=== PATIENT | male | born 1970 | race Caucasian/White ===

== ENCOUNTER → 2024-03-12 | Day surgery (SDC) | payer BC ==
[~2024-03-12] MED LIST: LIDOCAINE 1% MPF 5 ML VIAL ONE; propofoL 200 MG/20 ML VIAL IV ONE
[2024-03-12 10:31] LABS: Absolute Basophils 0.1 K/uL (0-0.5); Absolute Eosinophils 0.2 K/uL (0-0.5); Absolute Lymphocytes (CBC) 2.3 K/uL (0.7-4.9); Absolute Monocytes 0.6 K/uL (0.1-1.3); Absolute Neutrophil 5.8 K/uL (1.8-8.0); Basophils % 0.7 % (0-1.3); Eosinophils % 2.5 % (0-4.4); Hematocrit 46.8 % (39.6-49.0); Hemoglobin 16.2 g/dL (13.6-17.9); Lymphocytes % 25.7 % (15.3-44.8); MCH 30.5 pg (27.0-35.0); MCHC 34.6 g/dL (32.0-36.0); MPV 6.8 fL (7.6-11.3); Monocytes % 6.4 % (3.3-12.3); Neutrophils % 64.7 % (41.7-73.7); Nucleated Red Blood Cells % 0.1 % (0-0); Platelets 419 thou/uL (152-406); RBC Red Blood Cell Count 5.32 M/uL (4.33-5.43); Red Cell Distribution Width 14.1 % (12.1-15.2)
[2024-03-12] MEDS: Ringers Lactate 1,000 ML IV ONE (10:45)
--- NOTE | 2024-03-12 12:07 | EKG ---
Test Date: 2024-03-12 Test Time: 11:11:34 Registered Nurse Teacher: NIRU MEASUREMENT RESULTS: Intervals: Rate: 68 [place]: 148 QRSD: 90 QT: 376 QTc: 399 [place]: P: 32 [place]: 148 QRS: 40 T: 43 INTERPRETIVE STATEMENTS: Normal sinus rhythm Normal ECG No previous ECG available for comparison Electronically Signed On 03-12-24 12:07:06 [employer] by Matthew Max
[2024-03-12] MEDS: HYDROCODONE/APAP 5/325 MG TAB ONE (12:36)
[2024-03-12 14:41] VITALS: O2SAT 100
[2024-03-12 14:42] VITALS: BP 140/88; TEMP 98.4
== END ==
LOC: OR 10:17
PROVIDERS: ATTEND Surgery
PROC: 0DBH8ZX Excision of Cecum, Via Natural or Artificial Opening Endoscopic, Diagnostic (ICD-10-PCS; principal; 2024-03-12 12:00)
DX: Z12.11 Encounter for screening for malignant neoplasm of colon (principal); D12.0 Benign neoplasm of cecum; K57.30 Diverticulosis of large intestine without perforation or abscess without bleeding; K64.8 Other hemorrhoids
CPT/HCPCS: 93005; 85025; 80048; 36415; 88305; 45385; J2704; J2003; J7120

== ENCOUNTER 2024-03-14 10:23 | Emergency (ER) | payer BC ==
--- OUTSIDE RECORDS SUMMARY | 2024-03-14 10:28 | XMS REPORT | Continuity of Care Document ---
Author Name Unknown Address [address] [facility] [address]. [address] [facility] Address [address] [facility] [address] [place] [address] Care Team Providers Care Doll Wig Hackler Name Role Phone DORIS CEDENO Attending Clinician Unavailable [id number] Attending Clinician Unavailable RTANG NUNN Attending Clinician Unavailab Horace Nicholas Attending Clinician Unavailable TAISHA RODRIGUEZ Attending Clinician Unavaila MARYANN Melendez Attending Clinician Unavailable Laura Leavitt MD Attending Clinician [phone] LAURA LEAVITT Attending Clinician Unavailabl e LAB68 Attending Clinician Unavailable Oz Heath Attending Clinician Unavaila Payal Nowak Attending Clinician Unavaila maureen Physician, No Primary or Family Admitting Clinic steffanie Unavailable UNDEFINED Admitting Clinician Unavailable Jah Cervantes Admitting Clinician Unavailable Payers Payer Name Policy Type Policy Number Effective Date Expirati on Date Source BCBS 2 [id number] 2024 00:00:00 [facility] INSURANCE CLAIMS 2 [id number] 2021 00:00:00 Problems Condition Name Condition Details Condition Category Status Onset Date Resolution Date Last Treatment Date Treating Clinician Comments Source Prediabete s Prediabete s Disease Active 08-30 00:00: 00 Johanne Petersen - Externa l Mixed hyperlipid emia Mixed hyperlipid emia Disease Active 08-27 00:00: 00 Johanne Petersen - Externa l Primary hypertensi on Primary hypertensi on Disease Active 08-26 00:00: 00 Johanne Petersen - Externa l Obesity Obesity Disease Active 08-26 00:00: 00 Johanne Winterold - Externa l Smoker Smoker Disease Active 08-26 00:00: 00 Johanne Petersen - Externa l Umbilical hernia Umbilical hernia Disease Active 08-26 00:00: 00 Johanne Winterold - Externa l Calculus of gallbladde r without cholecysti tis without obstructio n Calculus of gallbladde r without cholecysti tis without obstructio n Disease Active 08-26 00:00: 00 Johanne Petersen - Externa l Allergies, Adverse Reactions, Alerts Allergy Name Allergy Type Status Severity Reaction(s) Onset Date Inactive Date Treating Clinician Comments Source No Known Allergie s DA Active U 08-15 00:00: 00 [facility] No Known Allergie s DA Active U 2017-02-10 00:00: 00 [facility] No Known Allergie s DA Active U 2-14 00:00: 00 [facility] No Known Allergie s DA Active U 0 4-27 00:00: 00 [facility] Social History Social Habit Start Date Stop Date Quantity Comments Source History of tobacco use 2023-12-31 00:00:00 Chews Tobacco Johanne Petersen - External Sexual orientation K harvye Petersen - External Tobacco use and exposure 2024-03-05 00:00:00 2024-03-05 00:00:00 User of smokeless tobacco Johanne Petersen - External History of Social function 2024-03-05 00:00:00 2024-03-05 00:00:00 Johanne Gutierrez External Sex 2019-03-07 19:08:03 2019-03-07 19:08:03 Male (finding) Jhoanne Epstein Sex assigned at 1970 00:00:00 1970 00:00:00 Johanne Epstein Smoking Status Start Date Stop Date Source Ex-smoker 2024-03-05 00:00:00 2024-03-05 00:00:00 Almita gabriel Nicola Epstein Medications Ordered Medication Name Filled Medication Name Start Date Stop Date Current Medication? Ordering Clinician Indication Dosage Frequency Signature (SIG) Comments Components Source Atenolol 25 MG oral Tablet 03-05 00:00: 00 Yes [id number] 25mg QD Take 1 tablet (25 mg total) by mouth daily. Johanne jensen Losartan Potassium (COZAAR) 100 MG oral Tablet 03-05 00:00: 00 09-02 04:59 :00 Yes [id number] 100mg QD Take 1 tablet (100 mg total) by mouth daily. Johanne jensen BUPROPION HCL SR 150 MG OR TB12 02-17 00:00: 00 Yes 150mg Q.5D Take 1 tablet (150 mg total) by mouth 2 times daily. Johanne jensen FENOFIBRATE MICRONIZED 54 MG oral Tablet 2023-02 00:00: 00 Yes 54mg QD Take 1 tablet (54 mg total) by mouth daily. Johanne jensen Atorvastati n Calcium 40 MG oral Tablet 08-27 00:00: 00 03-05 00:00 :00 No [id number] 40mg QD Take 1 tablet (40 mg total) by mouth daily Johanne jensen [facility] d Ethyl Esters 1 g oral Capsule 08-27 00:00: 00 03-05 00:00 :00 No [id number] 2g Q.5D Take 2 capsules (2 g total) by mouth 2 times daily Johanne jensen Losartan Potassium 100 MG oral Tablet 07-25 00:00: 00 03-05 00:00 :00 No 100mg QD Take 1 tablet (100 mg total) by mouth daily. Johanne jensen Atenolol 25 MG oral Tablet 07-25 00:00: 00 03-05 00:00 :00 No 25mg QD Take 1 tablet (25 mg total) by mouth daily. Johanne jensen Immunizations Ordered Immunization Name Filled Immunization Name Date Status Comments Source Tdap- (Boostrix, Adacel) Unknown Completed Johanne Petersen - External Vital Signs Vital Name Observation Time Observation Value Comments S ource Systolic blood pressure 2024-03-05 15:26:00 134 mm[Hg] Johanne bronson - External Diastolic blood pressure 2024-03-05 15:26:00 80 mm[Hg] Johanne bronson - External Heart rate 2024-03-05 15:26:00 70 /min Terry Petersen - External Body temperature 2024-03-05 15:26:00 36.61 Fidelia Johanne Petersen - External Respiratory rate 2024-03-05 15:26:00 18 /min Johanne Petersen - External Body height 2024-03-05 15:26:00 175.3 cm Selena cobos ybalisha - External Body weight 2024-03-05 15:26:00 93.044 kg Selena cobos Nicola - External BMI 2024-03-05 15:26:00 30.29 kg/m2 Selena papito Winteralisha - External Oxygen saturation in Arterial blood by Pulse oximetry 2024-03-05 15:26:00 98 /min Johanne bronson - External Encounters Start Date/Time End Date/Time Encounter Type Admission Type Attending [facility] Care Facility Care Department Encounter ID Source 2021-09-09 15:56:00 Emergency [facility] [id number] [facility] 2021-09-09 15:56:00 Emergency [facility] [id number] 95 [facility] 2024-06-03 09:30:00 2024-06-03 09:30:00 Outpatient DORIS CEDENO [id number] Johanne Petersen 2024-03-06 00:00:00 2024-03-06 00:00:00 Outpatient DORIS CEDENO [facility]AN[facility] [id number] [facility] 2024-03-05 10:15:00 2024-03-05 10:15:00 Outpatient [id number] JOHANNE JOHANNE [id number] Johanne Abreualisha 2024-03-05 09:30:00 2024-03-05 09:30:00 Outpatient DORIS CEDENO JOHANNE [id number] Johanne Abreualisha 2024-03-01 13:30:00 2024-03-01 13:30:00 Outpatient TRANG NUNN JOHANNE LANG [id number] [facility] 2024-03-01 13:30:00 2024-03-01 13:30:00 Outpatient TRANG NUNN JOHANNE LANG [id number] Johanne [facility] 2022-02-04 15:36:00 2022-02-04 20:42:00 Emergency EM Horace Gilliam [facility] [id number] [facility] 2021-10-13 00:00:00 2021-10-13 00:00:00 Outpatient TAISHA RODRIGUEZ [id number] Johanne [facility] 2021-09-28 09:30:00 2021-09-28 09:30:00 Outpatient MARYANN RITCHIE [id number] Joh[facility] 2021-08-30 11:30:00 2021-08-30 12:00:00 Office Visit [facility] [id number] Johanne [facility] 2021-08-27 00:00:00 2021-08-27 00:00:00 Outpatient LAURA LEAVITT [id number] Joh[facility] 2021-08-26 10:45:00 2021-08-26 10:45:00 Outpatient HERMINIA JOHANNE LANG [id number] Johanne [facility] 2021-08-26 10:00:00 2021-08-26 10:30:00 Office Visit [facility] [id number] Johanne Petersen 2021-08-26 00:00:00 2021-08-26 00:00:00 Outpatient LAURA LEAVITT [id number] Johnane Petersen 2021-08-20 16:55:00 2021-08-20 23:25:00 Emergency EM Oz Heath [facility] JONEL [id number] [facility] 2021-08-20 16:55:00 2021-08-20 23:25:00 Emergency [facility] [id number] [facility] 2021-08-15 22:10:00 2021-08-16 01:42:00 Emergency EM Pyaal Brown [facility] [id number] [facility] 2021-08-15 22:10:00 2021-08-16 01:42:00 Emergency EM Payal Brown [facility] JONEL [id number] [facility] Results Test Description Test Time Test Comments Results Result Co mments Source LACTIC [id number] 19:23:00* Test Item Value Reference Range Interpretation Comme [facility] LACTIC ACID (test code = LACT) 1.2 mmol/L 0.7-2.0 N [id number] 19:23:00* Test Item Value Reference Range Interpretation Comme [facility] LIPASE (test code = LIP) 23 U/L 23-300 N BASIC METABOLIC [id number] 19:23:00* Test Item Value Reference Range Interpretation Comme nts SODIUM (test code = NA) 137 mmol/L 137-145 N POTASSIUM (test code = K) 3.7 mmol/L 3.4-5.0 N CHLORIDE (test code = CL) 101 mmol/L 98-107 N CARBON DIOXIDE (test code = CO2) 27 mmol/L 22-30 N ANION GAP (test code = GAP) 13 GLUCOSE (test code = GLU) 119 mg/dL 74-106 H BLOOD UREA NITROGEN (test code = BUN) 16 mg/dL 9-20 N GLOMERULAR FILTRATION RATE (test code = GFR) 108 mL/min The Glomerular Filtration Rate is a calculated parameterbased on serum Creatinine, patient age and sex. GFR valuesless than 60 mL/min/1.73 square meters are indicative ofChronic Kidney Disease. Values less than 15 mL/min/1.73square meters indicate Kidney failure. The calculation forGFR is based on the CKD-EPI (2020) calculation. This formulais race indifferent and is the recommended formula for GFRby the National Kidney Foundation for Adults.The GFR will not calculate if the sex is unknown or if thepatient's age is <18 years. CREATININE (test code = CREAT) 0.8 mg/dL 0.7-1.3 N CALCIUM (test code = CA) 8.9 mg/dL 8.4-10.2 N INDEX HEMOLYSIS (test code = HEMINDEX) < 15 Index/DL 0-100 N LIVER FUNCTION [id number] 19:23:00* Test Item Value Reference Range Interpretation Comme nts TOTAL PROTEIN (test code = PROT) 7.3 g/dL 6.3-8.2 N "A positive bias may occur for patients taking Eltrombopag(a bone marrow stimulant used to treat thrombocytopenia andaplastic anemia)." ALBUMIN (test code = ALB) 4.6 g/dL 3.5-5.0 N BILIRUBIN TOTAL (test code = BILT) 0.6 mg/dL 0.2-1.3 N "A positive b ias may occur for patients taking Eltrombopag(a bone marrow stimulant used to treat thrombocytopenia andaplastic anemia)." BILIRUBIN CONJUGATED (test code = BILCON) 0 mg/dL 0-0.3 N "A positive bias may occur for patients taking Eltrombopag(a bone marrow stimulant used to treat thrombocytopenia andaplastic anemia)." CONJUGATED BILIRUBIN IS THE REPLACEMENT ASSAY FOR DIRECTBILIRUBIN. BILIRUBIN UNCONJUGATED (test code = BILUNC) 0.3 mg/dL 0-1.1 N SGOT/AST (test code = AST) 34 U/L 15-46 N SGPT/ALT (test code = ALT) 34 U/L 0-49 N ALKALINE PHOSPHATASE (test code = ALKP) 80 U/L 38-126 N CBC W/AUTO [id number] 19:12:00* Test Item Value Reference Range Interpretation Comme nts WHITE BLOOD CELL (test code = WBC) 9.1 x10 3/uL 5.0-12.0 N RED BLOOD CELL (test code = RBC) 4.63 x10 6/uL 4.70-6.10 L HEMOGLOBIN (test code = HGB) 14.0 g/dL 14.0-18.0 N HEMATOCRIT (test code = HCT) 40.2 % 37.0-49.0 N MEAN CELL VOLUME (test code = MCV) 87 fL 80-94 N MEAN CELL HGB (test code = MCH) 30.2 pg 27-31 N MEAN CELL HGB CONCENTRATION (test code = MCHC) 34.8 g/dL 33-37 N RED CELL DISTRIBUTION WIDTH (test code = RDW) 12.3 % 11.5-15.5 N PLATELET COUNT (test code = PLT) 268 x10 3/uL 130-400 N MEAN PLATELET VOLUME (test c ode = MPV) 8.9 fL 9.4-16.4 L NEUTROPHIL % (test code = NT%) 51.4 % 43-65 N IMMATURE GRANULOCYTE % (test code = IG%) 0.3 % 0.0-2.0 N LYMPHOCYTE % (test code = LY%) 39.9 % 20.5-45.5 N MONOCYTE % (test code = MO%) 4.4 % 5.5-11.7 L EOSINOPHIL % (test code = EO%) 3.4 % 0.9-2.9 H BASOPHIL % (test code = BA%) 0.6 % 0.2-1.0 N NUCLEATED RBC % (test code = NRBC%) 0.0 % 0-1.0 N NEUTROPHIL # (test code = NT#) 4.67 x10 3/uL 2.2-4.8 N IMMATURE GRANULOCYTE # (test code = IG#) 0.03 x10 3/uL 0-0.03 N LYMPHOCYTE # (test code = LY#) 3.63 x10 3/uL 1.3-2.9 H MONOCYTE # (test code = MO#) 0.40 x10 3/uL 0.3-0.8 N EOSINOPHIL # (test code = EO#) 0.31 x10 3/uL 0.0-0.2 H BASOPHIL # (test code = BA#) 0.05 x10 3/uL 0.0-0.1 N - CT ABD PELVIS W/O [id number] 17:34:00 [facility] 1970 Sex: M FAX: Demetria Degroot [phone] [place]: [address]: REG Name: FARA HARRIS : 1970 Age/S: 51/M [address] Unit: [id number] Loc: [place] [address] Phys: Demetria Christine APRNNP Acct: [id number] Date: Status: REG ER PHONE #: [phone] Exam Date: 02/04/2022 1700 FAX #: [phone] Reason: mid abdominal pain EXAMS: CPT CODE: [id number] CT ABD PELVIS W/O CONT 30491 EXAMINATION: - CT ABDPELVIS W/O CONT COMPARISON: CT scan performed August 20, [address] scan of chest performed October 23, 2010 HISTORY: Mid abdominal pain LOCATION CODE: C3 TECHNIQUE: CT of the Abdomen and Pelvis without intravenous contrast .Oral contrast was not administered Axial noncontrast enhanced images of the abdomen and pelvis were obtained and reviewed in soft tissue, bone and lung windows. Coronal andsagittal reconstructed images were also provided for review. All CT scans are performed using dose optimization techniques as appropriate to a performed exam including one or more of the following: ?A utomated exposure control ?Adjustment of the mA and/or kV according to patient size ?Use of iterative reconstruction technique FINDINGS ABDOMEN: Mild diffuse fatty change is again noted in the liver,with areas of focal fatty sparing seen around the gallbladder fossa. Small dependent gallstone is unchanged. There is no biliary dilatation. The spleen, pancreas, adrenal glands and kidneys are normal. There is no free air, free fluid or lymphadenopathy. The bowel, including the appendix, is normal. Small umbilical hernia containing fat and fluid is again noted. Amount of fluid contained within the tiny hernia has decreased compared to the prior. Occasional 3 to 5 mm nodules in the visualized portions of the right lower lung are present. They are unchanged from 2011. They can be considered benign by CT criteria without need for additional imaging follow-up. Mild degenerative disc changes are present in the spine. FINDINGS PELVIS: The urinary bladder, prostate and seminal vesicles are normal. There is no free air, free fluid or lymphadenopathy. Mild atheromatous plaquing is present in the vessels. No suspicious bowel lesions are identified. Mild osteoarthritic changes are seen in the sacroiliac joints. PAGE 1 Signed Report (CONTINUED) FAX: Demetria Degroot [phone] [place]: St: REG -- Name: FARA HARRIS [facility] [place] : 1970 Age/S: 51/M [address] Unit: [id number] Loc: [place] [address] Phys: Demetria Christine Acct: [id number] Dis Date: Status: REG ER PHONE #: [phone] Exam Date: 02/04/2022 1700 FAX #: [phone] Reason: mid abdominal pain EXAMS: CPT CODE: [id number] CT ABD PELVIS W/O CONT 91928 (Continued) IMPRESSION: No acute abnormality abdomen or pelvis Stable findings as above are at 1734 Reported and signed by: Leidy Fernandez MD CC: Demetria Christine Technologist: Nereida Cunningham; JEFFREY BROOKS Trnscrd Dt/Tm: 02/04/2022 (1734) [email or web address] Orig Print D/T: S: 02/04/2022 (1737 PAGE 2 SignedReport- CT ABD PELVIS W/O [id number] 21:37:00 [facility] : 1970 Sex: M Patient Name: FARA HARRIS Unit No: [id number] EXAMS: CPT CODE: [id number] CT ABD PELVIS W/O CONT 27370 EXAM: - CT ABD PELVIS W/O CONT HISTORY: 50 years -old Male with can't reduce umbilical hernia TECHNIQUE: Contrast - No IV contrast was given. No oral contrast was given Noncontrast phase - abdomen and pelvis including all of kidneys Reconstructions - coronal and sagittal planes Automated exposure reduc tion (Auto mA/Smart mA) was utilized in compliance with ACR [employer] COMPARISON: 07/17/2021 FINDINGS: Statements: Lack of intravenous contrast compromises evaluation of abdominopelvic organs and vasculature. Lack of oral contrast compromises evaluation of bowel. Thoracic: Included images of the lower chest demonstrate no abnormalities. Hepatobiliary: The liver is normal without focal lesion. Gallstone is present within the gallbladder. No biliary dilation. Pancreas: Normal. Spleen: Normal. Adrenals: Normal. Genitourinary: The kidneys are normal. There is no evidence of hydronephrosis of either kidney. There is no evidence of renal calculus. Evaluation of the bladder is limited, but no obv ious bladder abnormality is present. Gastrointestinal: No bowel obstruction or perienteric inflammation. The appendix is normal. Bones/Soft Tissues: No acute osseous findings. Fluid-filled umbilical hernia is present similar to prior study. No herniated bowel identified. Peritoneum/Other: No extraluminal air. No extraluminal fluid. IMPRESSION: 1. Fluid-filled umbilical hernia. No herniated bowel.2. Cholelithiasis. 3. No other changes compared to prior exam. [facility] Jaimie NAME: FARA HARRIS [address] [place] [address] PHYS: Rosa Isela Severino [place], [place] [address] : 1970 AGE: 50 SEX: M LOC: RIMMA PHONE #: [phone] EXAM DATE: 08/20/2021 STATUS: REG ER FAX #: [phone] RAD #: D/C DT PAGE 1 Signed Report (CONTINUED) Patient Name: FARA HARRIS Unit No: [id number] EXAMS: CPT CODE: [id number] CT ABD PELVIS W/O CONT 09939 <Continued> ElectronicallySigned by Sabrina Castillo on 08/20/2021 at 2136 Reported and signed by: Maryann Castillo M.D. CC: Rosa Isela Wilkinson NP Dictated Date/Time: 08/20/2021 (2136) Technologist: Rojas Rodgers CTDI:DLP: Trnscrpt: 08/20/2021 (2136) [email or web address] NOHEMYVioleta Etienne NAME: FARA HARRIS [address] [place] [address] BlvdPHYS: Rosa Isela Severino NP [place] [address] : 1970 AGE: 50 SEX: M LOC: [facility] PHONE #: [phone] EXAM DATE: 08/20/2021 STATUS: REG ER FAX #: [phone] RAD #:D/C DT PAGE 2 Signed Report Patient Name: FARA HARRIS Unit No: [id number] EXAMS: CPT CODE: [id number] CT ABD PELVIS W/O CONT 03213 <Continued> Orig Print D/T: S: 08/20/2021 (2139) GARRETT DongeNAME: FARA HARRIS [address] [place] [address] Blvd PHYS: Rosa Isela Severino [place] [address] : 1970 AGE: 50 SEX: M LOC: BVictorinoERS PHONE #: [phone] EXAM DATE: 08/20/2021 STATUS: REG ER FAX #: [phone] RAD #: D/C DT PAGE 3 Signed ReportUA RFLX MICR CULT IF [id number] 19:38:00* Test Item Value Reference Range Interpretation Comme nts UA COLOR (test code = COLU) LIGHT-YELLOW DESCRIPT YELLOW UA APPEARANCE (test code = APPU) CLEAR DESCRIPT CLEAR UA GLUCOSE DIPSTICK (test code = DGLUU) NORMAL (0) mg/dL See_Comment [Automated message] The system which generated this result transmitted reference range: 0 (NORMAL). The reference range was not used to interpret this result as normal/abnormal. UA BILIRUBIN DIPSTICK (test code = BILU) NEGATIVE (0.0) mg/dL See_Comment [Automated message] The system which generated this result transmitted reference range: (NEG) 0. The reference range was not used to interpret this result as normal/abnormal. UA KETONE DIPSTICK (test code = KETU) NEGATIVE (0) mg/dL See_Comment [Automated message] The system which generated this result transmitted reference range: (NEG) 0. The reference range was not used to interpret this result as normal/abnormal. UA SPECIFIC GRAVITY (test code = SGU) 1.033 SG 1.001-1.035 UA BLOOD DIPSTICK (test code = OTIS) NEGATIVE (0.00) mg/dL See_Comment [Automated message] The system which generated this result transmitted reference range: 0 (NEG). The reference range was not used to interpret this result as normal/abnormal. UA PH DIPSTICK (test code = HIMA) 5.5 pH UNITS 4.6-8.0 UA PROTEIN DIPSTICK (test code = PROU) 30 (1+) mg/dL See_Comment A [Automated message] The system which generated this result transmitted reference range: <30 (1+). The reference range was not used to interpret this result as normal/abnormal. UA UROBILINIOGEN DIPSTICK (test code = URO) NORMAL (0) mg/Dl See_Comment [Automated message] The system which generated this result transmitted reference range: <2.0 (1+). The reference range was not used to interpret this result as normal/abnormal. UA NITRITE DIPSTICK (test code = CRISTINA) NEGATIVE (0) SCREEN NEG UA LEUKOCYTE ESTERASE DIPSTICK (test code = LEUU) NEGATIVE (0) Leuk/mcL See_Comment [Automated message] The system which generated this result transmitted reference range: (NEG) 0. The reference range was not used to interpret this result as normal/abnormal. UA COMMENT (test code = COMU) CLEAN CATCH SPEC NoteSPEC SpecComment UA WBC (test code = WBCU) 0-3 #WBC/HPF 0-3 UA RBC (test code = RBCU) 3-5 #RBC/HPF 0-3 UA BACTERIA (test code = BACU) TRACE >0 /HPF NONE-FEW UA MUCUS (test code = MUCU) RARE /LPF NONE UA CULTURE NEEDED? (test code = UACULT) Crit NOTmet CULT-N/A Criteria [facility] Indication for culture: Flank PainBASIC METABOLIC [id number] 19:35:00* Test Item Value Reference Range Interpretation Comme nts SODIUM (test code = NA) 138.0 mmol/L 133-144 N POTASSIUM (test code = K) 3.7 mmol/L 3.5-5.1 N CHLORIDE (test code = CL) 105 mmol/L 95-105 N CARBON DIOXIDE (test code = CO2) 25 mmol/L 21-32 N ANION GAP (test code = GAP) 8.0 GAP calc 4.0-15.0 N GLUCOSE (test code = GLU) 130 MG/DL 70-110 H BLOOD UREA NITROGEN (test code = BUN) 23 MG/DL 7-18 H CREATININE (test code = CREAT) 0.89 MG/DL 0.55-1.30 N Results may be depressed if patient is takingN-Acetylcystei ne (NAC) and Metamizole (Dipyrone). CALCIUM (test code = CA) 8.6 MG/DL 8.5-10.1 N INDEX HEMOLYSIS (test code = HEMINDEX) 3 SMALL 25-50 MG Index/DL See_Comment [Automated message] The system which generated this result transmitted reference range: 1 NORMAL. The reference range was not used to interpret this result as normal/abnormal. INDEX ICTERIC (test code = ICTINDEX) 1 NORMAL <2 MG Index/DL See_Comment [Automated message] The system which generated this result transmitted reference range: 1 NORMAL. The reference range was not used to interpret this result as normal/abnormal. INDEX LIPEMIA (test code = LIPINDEX) 2 TRACE 50-100 MG Index/DL See_Comment [Automated message] The system which generated this result transmitted reference range: 1 NORMAL. The reference range was not used to interpret this result as normal/abnormal. HEPATIC FUNCTION [id number] 19:35:00* Test Item Value Reference Range Interpretation Comme nts TOTAL PROTEIN (test code = PROT) 7.7 G/DL 6.4-8.2 N ALBUMIN (test code = ALB) 4.1 G/DL 3.4-5.0 N BILIRUBIN TOTAL (test code = BILT) 0.46 MG/DL 0.00-1.00 N BILIRUBIN DIRECT (test code = BILD) 0.16 MG/DL 0.00-0.30 N BILIRUBIN INDIRECT (test cod e = BILIND) 0.30 MG/DL 0.2-1.3 N SGOT/AST (test code = AST) 21 Unit/L 15-37 N SGPT/ALT (test code = ALT) 42 Unit/L 12-78 N ALKALINE PHOSPHATASE TOTAL ( test code = ALKP) 90 Unit/L 45-117 N [id number] 19:35:00* Test Item Value Reference Range Interpretation Comme nts LIPASE (test code = LIP) 100 Unit/L 114-286 L CBC W/O [id number] 19:17:00* Test Item Value Reference Range Interpretation Comme nts WHITE BLOOD CELL (test code = WBC) 8.0 K/mm3 4.1-12.1 N RED BLOOD CELL (test code = RBC) 4.82 M/mm3 3.8-5.5 N HEMOGLOBIN (test code = HGB) 14.8 G/DL 10.6-15.8 N HEMATOCRIT (test code = HCT) 42.6 % 31.8-47.4 N MEAN CELL VOLUME (test code = MCV) 88.4 fL 80.1-101.1 N MEAN CELL HGB (test code = MCH) 30.7 pg 25.3-35.3 N MEAN CELL HGB CONCETRATION ( test code = MCHC) 34.7 G/DL 32.7-35.1 N RED CELL DISTRIBUTION WIDTH (test code = RDW) 12.9 % 12.2-16.4 N PLATELET COUNT (test code = PLT) 277 K/mm3 155-337 N MEAN PLATELET VOLUME (test c ode = MPV) 9.3 fL 7.6-10.4 N - CT ABD PELVIS [id number] 00:51:00 [facility] : 1970 Sex: M FAX:Jah Spaulding MD [phone] [place]: St: REG Name: FARA HARRIS [facility] : 1970 Age/S: 50/M [id number] Unit: [id number] Loc: [place] [address] Phys: Ronan Vaughn Acct: [id number] Dis Date: Status: REG ER PHONE #: [phone] Exam Date: 08/16/20218 FAX #: [phone] Reason: ventral hernia, increased pain and distention EXAMS: CPT CODE: [id number] CT ABD PELVIS W/CONT 28504 EXAM: - CT ABD PELVIS W/CONT HISTORY: Abdominal pain. TECHNIQUE: Axial tomograms through the abdomen and pelvis were obtained after intravenous contrast. Coronal and sagittal reformatted images are provided. This exam was performed according to our departmental dose-optimization program, which i ncludes automated exposure control, adjustment of the mA and/or kV according to patient size and/oruse of iterative reconstruction technique. COMPARISON: June 03, 2015. FINDINGS: The visualized lung bases are clear. Tiny subcentimeter nodule in right middle lobe laterally. No effusion. There is fatty infiltration of the liver. The spleen, pancreas, adrenal glands and kidneys demonstrate no significant abnormalities. The appendix has a normal appearance. The bowel is unremarkable. There is no adenopathy or free fluid. There is bilateral symmetrical small inguinal hernias containing fat. There is a small 2.4 cm cyst at the umbilicus. This has increased in size compared to 1 cm on prior exam. A small umbilical hernia containing fluid is another possibility. There is no acute osseous abnormality. IMPRESSION: A small 2.5 cm umbilical cyst versus small umbilical hernia containing fluid. Small bilateral inguinal hernias containing fat. Hepatic steatosis. PAGE 1 Signed Report (CONTINUED) FAX: Jah Spaulding MD [phone] [place]: St: REG Name: FARA HARRIS [facility] : 1970 Age/S: 50/M [address] Unit: [id number] Loc: [place] [address] Phys: Ronan Vaughn Acct: [id number] Dis Date: Status: REG ER PHONE #: [phone] Exam Date: 08/16/2021 0028 FAX #: [phone] Reason: ventral hernia, increased pain and distention EXAMS: CPT CODE: [id number] CT ABD PELVIS W/CONT 21414 <Continued> at 0051 Reported and signed by: Kiel Pollack MD CC: Jah Cervantes MD Technologist: ALANA TO; MAGGIE LELIOTT Trnscrd Dt/Tm: 08/16/2021 (005) [email or web address] Orig Print D/T: S: 08/16/2021 (0054 PAGE 2 Signed ReportBASIC METABOLIC [id number] 23:46:00* Test Item Value Reference Range Interpretation Comme nts SODIUM (test code = NA) 136 mmol/L 137-145 L POTASSIUM (test code = K) 3.9 mmol/L 3.4-5.0 N CHLORIDE (test code = CL) 99 mmol/L 98-107 N CARBON DIOXIDE (test code = CO2) 28 mmol/L 22-30 N ANION GAP (test code = GAP) 13 GLUCOSE (test code = GLU) 112 mg/dL 74-106 H BLOOD UREA NITROGEN (test code = BUN) 14 mg/dL 9-20 N GLOMERULAR FILTRATION RATE (test code = GFR) 95 >60 The estimated glomerular filtration rate is computed usingpatient race, age (>18), sex, and serum creatinine. If anyof the needed data elements are missing the Laboratory cannot compute an estimation of the glomerular filtration rate. CREATININE (test code = CREAT) 0.9 mg/dL 0.7-1.3 N CALCIUM (test code = CA) 9.2 mg/dL 8.4-10.2 N INDEX HEMOLYSIS (test code = HEMINDEX) < 15 Index/DL 0-100 N LIVER FUNCTION [id number] 23:46:00* Test Item Value Reference Range Interpretation Comme nts TOTAL PROTEIN (test code = PROT) 7.6 g/dL 6.3-8.2 N "A positive bias may occur for patients taking Eltrombopag(a bone marrow stimulant used to treat thrombocytopenia andaplastic anemia)." ALBUMIN (test code = ALB) 4.6 g/dL 3.5-5.0 N BILIRUBIN TOTAL (test code = BILT) 0.7 mg/dL 0.2-1.3 N "A positive b ias may occur for patients taking Eltrombopag(a bone marrow stimulant used to treat thrombocytopenia andaplastic anemia)." BILIRUBIN CONJUGATED (test code = BILCON) 0 mg/dL 0-0.3 N "A positive bias may occur for patients taking Eltrombopag(a bone marrow stimulant used to treat thrombocytopenia andaplastic anemia)." CONJUGATED BILIRUBIN IS THE REPLACEMENT ASSAY FOR DIRECTBILIRUBIN. BILIRUBIN UNCONJUGATED (test code = BILUNC) 0.6 mg/dL 0-1.1 N SGOT/AST (test code = AST) 39 U/L 15-46 N SGPT/ALT (test code = ALT) 43 U/L 0-49 N ALKALINE PHOSPHATASE (test code = ALKP) 86 U/L 38-126 N [id number] 23:46:00* Test Item Value Reference Range Interpretation Comme nts LIPASE (test code = LIP) 122 U/L 23-300 N URINALYSIS [id number] 23:45:00* Test Item Value Reference Range Interpretation Comme nts UA COLOR (test code = COLU) YELLOW YELLOW UA APPEARANCE (test code = APPU) CLEAR CLEAR UA GLUCOSE DIPSTICK (test code = DGLUU) NEGATIVE MG/DL NEGATIVE UA BILIRUBIN DIPSTICK (test code = BILU) NEGATIVE NEGATIVE UA KETONE DIPSTICK (test code = KETU) NEGATIVE MG/DL NEGATIVE UA SPECIFIC GRAVITY (test code = SGU) 1.010 1.000-1.030 UA BLOOD DIPSTICK (test code = OTIS) TRACE NEGATIVE A UA PH DIPSTICK (test code = HIMA) 5.0 5.0-8.0 UA PROTEIN DIPSTICK (test code = PROU) NEGATIVE MG/DL NEGATIVE UA UROBILINOGEN DIPSTICK (test code = URO) 0.2 EU/dL See_Comment [Automated [employer]] The system which generated this result transmitted reference range: <=1.0. The reference range was not used to interpret this result as normal/abnormal. UA NITRITE DIPSTICK (test code = CRISTINA) NEGATIVE NEGATIVE UA LEUKOCYTE ESTERASE DIPSTICK (test code = LEUU) NEGATIVE NEGATIVE UA WBC (test code = WBCU) 0-3 /HPF See_Comment [Automated [employer]] The system which generated this result transmitted reference range: <4-5. The reference range was not used to interpret this result as normal/abnormal. UA RBC (test code = RBCU) 0-3 /HPF See_Comment [Automated [employer]] The system which generated this result transmitted reference range: <4-5. The reference range was not used to interpret this result as normal/abnormal. UA BACTERIA (test code = BACU) 1+ /HPF None-Rare A UA MUCUS (test code = MUCU) Rare /LPF See_Comment [Automated [employer]] The system which generated this result transmitted reference range: <Rare. The reference range was not used to interpret this result as normal/abnormal. UA SPERM (test code = SPERMU) Present /HPF None CBC W/AUTO [id number] 23:18:00* Test Item Value Reference Range Interpretation Comme nts WHITE BLOOD CELL (test code = WBC) 7.6 x10 3/uL 5.0-12.0 N RED BLOOD CELL (test code = RBC) 4.82 x10 6/uL 4.70-6.10 N HEMOGLOBIN (test code = HGB) 14.5 g/dL 14.0-18.0 N HEMATOCRIT (test code = HCT) 41.0 % 37.0-49.0 N MEAN CELL VOLUME (test code = MCV) 85 fL 80-94 N MEAN CELL HGB (test code = MCH) 30.1 pg 27-31 N MEAN CELL HGB CONCENTRATION (test code = MCHC) 35.4 g/dL 33-37 N RED CELL DISTRIBUTION WIDTH (test code = RDW) 12.8 % 11.5-15.5 N PLATELET COUNT (test code = PLT) 275 x10 3/uL 130-400 N MEAN PLATELET VOLUME (test c ode = MPV) 9.2 fL 9.4-16.4 L NEUTROPHIL % (test code = NT%) 74.0 % 43-65 H IMMATURE GRANULOCYTE % (test code = IG%) 0.5 % 0.0-2.0 N LYMPHOCYTE % (test code = LY%) 14.4 % 20.5-45.5 L MONOCYTE % (test code = MO%) 9.4 % 5.5-11.7 N EOSINOPHIL % (test code = EO%) 1.0 % 0.9-2.9 N BASOPHIL % (test code = BA%) 0.7 % 0.2-1.0 N NUCLEATED RBC % (test code = NRBC%) 0.0 % 0-1.0 N NEUTROPHIL # (test code = NT#) 5.63 x10 3/uL 2.2-4.8 H IMMATURE GRANULOCYTE # (test code = IG#) 0.04 x10 3/uL 0-0.03 H LYMPHOCYTE # (test code = LY#) 1.10 x10 3/uL 1.3-2.9 L MONOCYTE # (test code = MO#) 0.72 x10 3/uL 0.3-0.8 N EOSINOPHIL # (test code = EO#) 0.08 x10 3/uL 0.0-0.2 N BASOPHIL # (test code = BA#) 0.05 x10 3/uL 0.0-0.1 N - XR CHEST 1 [id number] 08:57:00 [facility] : 1970 Sex: M FAX: Camilo Sharma MD [phone] [place]: [address]: TRU Patient Name: FARA HARRIS Unit No: [id number] EXAMS: CPT CODE: [id number] XR CHEST 1 V [id number] EXAMINATION: - XR CHEST 1 V. LOCATION: B2. HISTORY: chest pain r/o pneumothorax. COMPARISON: Radiograph dated 03/22/2017. TECHNIQUE: Single AP view of the chest was obtained. FINDINGS: The heart is normal in size. Mild right medial basilar opacities are present. The left lung is clear. There is no pneumothorax. Remote right mid clavicular fracture is present. No acute osseous abnormality is identified. IMPRESSION: Mild medial right basilar opacities, which may represent atelectasis or infiltrates. at 0857 Reported and signed by: Aguilar Silver MD CC: Camilo Osei MD Dictated Date/Time: 12/16/2017 (0857)Technologist: Phong Burgess Transcribed Date/Time: 12/16/2017 (0857) By: [email or web address] Orig Print D/T: S: 12/16/2017 (0900) [facility] Jaimie NAME: FARA HARRIS [address] [place] [address] PHYS: Camilo Minor, [place] [address] : 1970 AGE: 47 SEX: M LOC: UNK PHONE #: [phone] EXAM DATE: 12/16/2017 STATUS: UNK FAX #: [phone] RAD NO: DC Dt: PAGE 1 Signed Report- XR CHEST 1 [id number] 21:20:00 [facility] : 1970 Sex: M FAX: He Persaud MD [phone] [place]: E St: [place] Patient Name: FARA HARRIS Unit No: [id number] EXAMS: CPT CODE: [id number] XRCHEST 1 V 41435 STUDY: Chest radiograph HISTORY: Chest pain. COMPARISON: None TECHNIQUE: Frontal view of the chest. SITE: R16 FINDINGS: The cardiac silhouette is unremarkable. There is no focal consolidation, pleural effusion, or pneumothorax. No acute osseous abnormalities are identified. IMPRESSION: No radiographic evidence for acute pulmonary abnormality. at 2119 Reported and signed by: Maryann Cote MD CC: He Sinclair MD Dictated Date/Time: 03/22/2017 (2119)Technologist: Alejandro Cantor Transcribed Date/Time: 03/22/2017 (2119) By: Inga [email or web address] Orig Print D/T: S: 03/22/2017 (2123) GARRETT Etienne NAME: FARA HARRIS [address] [place] [address] BlvdPHYS: He Stoddard MD [place], [place] [address] : 1970 AGE: 46 SEX: M LOC: UNK PHONE #: [phone] EXAM DATE: 03/22/2017 STATUS: UNK FAX #: [phone] RAD NO: DC Dt: PAGE 1 Signed Report
[2024-03-14 11:40] LABS: Absolute Eosinophils 0.1 K/uL (0-0.5); Absolute Lymphocytes (CBC) 1.5 K/uL (0.7-4.9); Absolute Monocytes 0.3 K/uL (0.1-1.3); Absolute Neutrophil 7.3 K/uL (1.8-8.0); Basophils % 0.4 % (0-1.3); Eosinophils % 1.4 % (0-4.4); Hematocrit 43.2 % (39.6-49.0); Hemoglobin 15.3 g/dL (13.6-17.9); Lymphocytes % 16.4 % (15.3-44.8); MCH 31.1 pg (27.0-35.0); MCHC 35.5 g/dL (32.0-36.0); MCV 87.7 fL (80-100); MPV 6.9 fL (7.6-11.3); Monocytes % 3.7 % (3.3-12.3); Neutrophils % 78.1 % (41.7-73.7); Platelets 332 thou/uL (152-406); RBC Red Blood Cell Count 4.92 M/uL (4.33-5.43); Red Cell Distribution Width 13.8 % (12.1-15.2)
--- NOTE | 2024-03-14 11:44 | RAD REPORT ---
EXAMINATION: CT ABDOMEN AND PELVIS WITH CONTRAST CLINICAL INDICATION: Abdominal pain TECHNIQUE: CT abdomen and pelvis was performed, after the administration of 100 cc Isovue-300.. Sagit noel and coronal reconstructions were obtained. One or more of the following dose reduction techniques were used: Automated exposure control, adjustment of the mA and kV according to patient si ze, and iterative reconstruction. Unless otherwise specified, incidental findings do not require dedicated imaging follow-up. [id number]. Oral contrast was not given which limits evaluation of bowel and appendix. COMPARISON: .None FINDINGS: Liver, spleen, pancreas, adrenals and kidneys appear unremarkable No evidence of diverticulitis. Normal appendix. Small umbilical hernia contains fluid. Normal appendix. Small inguinal hernias containing fat : IMPRESSION: Small umbilical hernia containing fluid Small inguinal hernias
[2024-03-14 14:18] LABS: Albumin 3.8 g/dL (3.4-5.0); Albumin/Globulin Ratio 1.1 (1.1-1.8); Anion Gap 7.7 mEq/L (5.0-15.0); Bilirubin Total 0.7 mg/dL (0.2-1.0); Globulin 3.6 g/dL (2.3-3.5); Potassium 3.7 mEq/L (3.5-5.1); Protein, Total 7.4 g/dL (6.4-8.2)
[2024-03-14] MEDS ORDERED: HYDROCODONE/APAP 5/325 MG TAB ONE (14:59)
--- NOTE | 2024-03-14 15:12 | RAD REPORT ---
EXAMINATION: ULTRASOUND DUPLEX OF SCROTUM AND TESTICLES CLINICAL INDICATION: Male, 53 years, left testicle pain TECHNIQUE: Duplex scan of the scrotal contents was performed including real-time color and spectral D oppler ultrasonography with arterial inflow and venous outflow. COMPARISON: No prior exam. FINDINGS: RIGHT TESTICLE AND EPIDIDYMIS: The right testicle is normal in size, measuring 3.1 x 3.5 x 2.2 cm. Normal, homogeneous echotexture with no focal lesion seen. The right epididymis is normal. Color Doppler flow in the right testicle is normal. Normal arterial and venous spectral Doppler waveforms are identified. No hydrocele. No varicocele. LEFT TESTICLE AND EPIDIDYMIS: The left testicle is normal in size, measuring 2.9 x 3.9 x 2.6 cm. Normal, homogeneous echotexture with no focal lesion seen. The left epididymis is normal. Color Doppler flow in the left testicle is normal. Normal arterial and venous spectral Doppler waveforms are identified. No hydrocele. No varicocele. INGUINAL CANAL: No hernia. ADDITIONAL FINDINGS: None. IMPRESSION: No acute or significant abnormalities.
--- NOTE | 2024-03-14 15:23 | ER ---
Nurse's Notes [facility] Name: Cricket Melara Age: 53 yrs Sex: Male : 1970 Arrival Date: 03/14/2024 Time: 10:23 Bed 23 Private MD: Diagnosis: Abdominal pain, Generalized;Essential (primary) hypertension;Left testicular pain Presentation: 03/14 10:47 Chief complaint: Patient states: Colonoscopy on Monday, woke this morning with left jl7 groin pain and umbilical hernia protruding with increased pain. Coronavirus screen: At this time, the client does not indicate any symptoms associated with coronavirus-19. Ebola Screen: No symptoms or risks identified at this time. Initial Sepsis Screen: Does the patient meet any 2 criteria? No. Patient's initial sepsis screen is negative. Does the patient have a suspected source of infection? No. Patient's initial sepsis screen is negative. Risk Assessment: Do you want to hurt yourself or someone else? Patient reports no desire to harm self or others. Onset of symptoms was March 14, 2024. 10:47 Method Of Arrival: Ambulatory jl7 10:47 Acuity: KATHLEEN 3 jl7 Triage Assessment: 10:55 General: Appears in no apparent distress. uncomfortable, Behavior is calm, cooperative, jl7 appropriate for age. Pain: Complains of pain in umbilical area Pain currently is 7 out of 10 on a pain scale. GI: Abdomen is non-distended. Historical: - Allergies: 10:55 No Known Allergies; jl7 - PMHx: 10:55 Hypertensive disorder; jl7 - Immunization history:: Adult Immunizations unknown. - Infectious Disease History:: Denies. - Social history:: Smoking status: unknown. Screenin:00 [facility] ED Fall Risk Assessment (Adult) History of falling in the last 3 months, iw including since admission No falls in past 3 months (0 pts) Confusion or Disorientation No (0 pts) Intoxicated or Sedated No (0 pts) Impaired Gait No (0 pts) Mobility Assist Device Used No (0 pt) Altered Elimination No (0 pt) Score/Fall Risk Level 0 - 2 = Low Risk Oriented to surroundings, Maintained a safe environment. Abuse screen: Denies threats or abuse. Denies injuries from another. Nutritional screening: No deficits noted. Tuberculosis screening: No symptoms or risk factors identified. Assessment: 14:21 General: Appears in no apparent distress. Behavior is calm, cooperative. Pain: iw Complains of pain in left testicle and left inguinal area and left lower quadrant and right lower quadrant and umbilical area. Neuro: Level of Consciousness is awake, alert, obeys commands, Oriented to person, place, time, situation, Moves all extremities. Full function. Cardiovascular: Respiratory: Respiratory effort is even, unlabored, Respiratory pattern is regular, symmetrical. Derm: Skin is intact, is healthy with good turgor. Vital Signs: 10:47 BP 159 / 102; Pulse 79; Resp 17; Temp 97.7; Pulse Ox 100% ; Weight 90.72 kg; Height 5 jl7 ft. 9 in. ; Pain 7/10; 10:47 Body Mass Index 29.53 (90.72 kg, 175.26 cm) jl7 10:47 Pain Scale: Adult jl7 ED Course: 10:35 Patient arrived in ED. im 10:39 Brent Evangelista DO is Attending Physician. ms3 10:49 Triage completed. jl7 10:54 Assisted provider with: chaperoned during testicular exam. jl7 10:55 Arm band placed on right wrist. Patient placed in waiting room, Patient notified of jl7 wait time. 11:30 CT Abd/Pelvis - IV Contrast Only In Process Unspecified. EDMS 11:31 CT completed. Patient tolerated procedure well. Note: 20 g to lt ac, labs collected and sj sent by katie in ct. Patient moved back from CT. 13:44 Scrotum Testicles US In Process Unspecified. EDMS 13:52 Ary Lindsey, RN is Primary Nurse. iw 15:23 Lance Cardenas MD is Referral Physician. ms3 15:45 IV discontinued, intact, bleeding controlled, No redness/swelling at site. Pressure iw dressing applied. Administered Medications: 15:10 Drug: HYDROcodone-acetaminophen PO 5 mg-325 mg 1 tabs PO once Route: PO; iw 15:30 Follow up: Response: No adverse reaction iw Medication: 14:21 VIS not applicable for this client. iw Outcome: 15:23 Discharge ordered by . ms3 15:50 Discharged to home ambulatory, with family, iw 15:50 Condition: good 15:50 Discharge instructions given to patient, family, Instructed on discharge instructions, follow up and referral plans. Demonstrated understanding of instructions, follow-up care, 15:51 Patient left the ED. iw Signatures: Dispatcher [employer] Katie Stearns Irene RN RN Yeimy Flores RN RN jl7 Brent Evangelista DO DO ms3 Leticia Obrien
--- NOTE | 2024-03-14 15:23 | EDPHYS ---
Physician Documentation [facility] Name: Cricket Melara Age: 53 yrs Sex: Male : 1970 Arrival Date: 03/14/2024 Time: 10:23 Bed 23 Private MD: ED Physician Brent Evangelista HPI: 03/14 10:53 This 53 yrs old Male presents to ER via Ambulatory with complaints of Abdominal Pain, ms3 Hernia. 10:53 53-year-old male with no past medical history presents to the emergency department for ms3 lower abdominal pain that began this morning. Patient states he had a colonoscopy performed on Monday which a large cecal polyp was removed. Patient denies fevers, chills. Patient does note he also has left testicular pain. Patient rates his discomfort a /. Patient denies any alleviating or inciting factors. Historical: - Allergies: 10:55 No Known Allergies; jl7 - PMHx: 10:55 Hypertensive disorder; jl7 - Immunization history:: Adult Immunizations unknown. - Infectious Disease History:: Denies. - Social history:: Smoking status: unknown. ROS: 10:53 Constitutional: Negative for fever, and chills. Cardiovascular: Negative for chest ms3 pain, and palpitations. Respiratory: Negative for shortness of breath, cough, wheezing, and pleuritic chest pain, 10:53 MS/Extremity: Negative for injury and deformity, Skin: Negative for injury, rash, and discoloration, 10:53 Abdomen/GI: Positive for abdominal pain, hernias, Exam: 10:53 Constitutional: This is a well developed, well nourished patient who is awake, alert, ms3 and in no acute distress. Chest/axilla: Normal chest wall appearance and motion. Nontender with no deformity. Cardiovascular: Regular rate and rhythm with a normal S1 and S2. No gallops, murmurs, or rubs. Normal PMI, no JVD. No pulse deficits. Respiratory: Lungs have equal breath sounds bilaterally, clear to auscultation and percussion. No rales, rhonchi or wheezes noted. No increased work of breathing, no retractions or nasal flaring. 10:53 Abdomen/GI: Inspection: abdomen appears normal, Bowel sounds: normal, in all quadrants, Palpation: moderate abdominal tenderness, in the right lower quadrant and left lower quadrant, Hernia: noted in the umbilical area and left inguinal area, incarceration, is not appreciated, tenderness, that is mild, 10:53 : Male external genitalia: erythema, is absent, penile discharge, is absent, swelling, is not appreciated, tenderness, of the left testicle is noted, that is mild, ulceration, is not present, Vital Signs: 10:47 BP 159 / 102; Pulse 79; Resp 17; Temp 97.7; Pulse Ox 100% ; Weight 90.72 kg; Height 5 jl7 ft. 9 in. ; Pain 7; 10:47 Body Mass Index 29.53 (90.72 kg, 175.26 cm) jl7 10:47 Pain Scale: Adult jl7 MDM: 10:53 Medical Screening Exam initiated ms3 15:23 Differential diagnosis: cholecystitis, Cholelithiasis, diverticulitis, gastritis, ms3 non-specific abd pain, Testicular torsion. 15:24 Data reviewed: vital signs, nurses notes, lab test result(s), radiologic studies, and ms3 as a result, I will discharge patient. Management of patient was discussed with the following: Hard Tile Setter Apprentice: Dr Cardenas- Reviewed CT results. Patient to follow up in clinic. I considered the following discharge prescriptions or medication management in the emergency department Medications were administered in the Emergency Department. See MAR. Historians other than the Patient: Spouse/Significant Other: . Counseling: I had a detailed discussion with the patient and/or guardian regarding the historical points, exam findings, and any diagnostic results supporting the discharge/admit diagnosis, lab results, radiology results, the need for outpatient follow up, to return to the emergency department if symptoms worsen or persist or if there are any questions or concerns that arise at home. Special discussion: Based on the patient's Hx, exam, and Dx evaluation, there is no indication for emergent surgery or inpatient Tx. It is understood by the patient/guardian that if the Sx's persist or worsen they need to return immediately for re-evaluation. ED course: Discussed CT, ultrasound, labs with patient and his . All questions were answered. Return precautions discussed include worsening symptoms, or any other concerns. Patient to follow-up with his primary care physician Dr. Cardenas in 2 to 3 days. All questions were answered. Return precautions discussed include worsening symptoms, or any other concerns. On reevaluation patient is alert and oriented x 4, no apparent distress, nontoxic-appearing, speaking full sentences, ambulatory in the emergency department.. 03/14 10:39 Order name: CBC with Diff; Complete Time: 11:47 ms3 03/14 10:39 Order name: CMP; Complete Time: 14:29 ms3 03/14 10:39 Order name: CT Abd/Pelvis - IV Contrast Only; Complete Time: 11:47 ms3 03/14 12:19 Order name: Scrotum Testicles US; Complete Time: 15:16 ms3 03/14 10:39 Order name: IV Saline Lock; Complete Time: 13:53 ms3 03/14 10:39 Order name: Labs collected and sent; Complete Time: 13:53 ms3 03/14 11:43 Order name: Labs - recollect needed: green top; Complete Time: 13:53 iw Administered Medications: 15:10 Drug: HYDROcodone-acetaminophen PO 5 mg-325 mg 1 tabs PO once Route: PO; iw 15:30 Follow up: Response: No adverse reaction iw Disposition Summary: 03/14/24 15:23 Discharge Ordered Notes: Location: Home ms3 Condition: Stable ms3 Diagnosis - Abdominal pain, Generalized ms3 - Essential (primary) hypertension ms3 - Left testicular pain ms3 Followup: ms3 - With: Lance Cardenas MD - When: 2 - 3 days - Reason: Recheck today's complaints Discharge Instructions: - Discharge Summary Sheet ms3 - Abdominal Pain, Adult ms3 - Hypertension, Adult ms3 - DASH Eating Plan ms3 Forms: - Medication Reconciliation Form ms3 - Antibiotic Education ms3 - Prescription Opioid Use ms3 - Patient Portal Instructions ms3 - Leadership Thank You Letter ms3 Signatures: Dispatcher [employer] EDAry Kang, RN RN iw Yeimy Curry RN RN jl7 Brent Evangelista DO DO ms3 Corrections: (The following items were deleted from the chart) 10:40 10:40 CBC+H.LAB.BRZ ordered. EDMS EDMS 10:40 10:40 COMPREHENSIVE METABOLIC PANEL+C.LAB.BRZ ordered. EDMS EDMS 10:40 10:40 Abdomen Pelvis W Con+CT.RAD.BRZ ordered. EDMS EDMS
[2024-03-14 15:58] VITALS: BP 159/102; TEMP 97.7; O2SAT 100
== END 2024-03-14 15:51 | disposition home or self-care (01) ==
LOC: ER 10:23
DX: R10.84 Generalized abdominal pain (principal); N50.812 Left testicular pain; I10 Essential (primary) hypertension
CPT/HCPCS: 85025; 36415; 80053; 74177; 76870; 99284; Q9967

== ENCOUNTER 2024-03-27 10:09 | Day surgery (SDC) | payer BC ==
[2024-03-27] MEDS: Ringers Lactate 1,000 ML IV ONE (10:45)
[2024-03-27] MEDS ORDERED: LIDOCAINE 1% MPF 30 ML VIAL ONE (11:22)
[2024-03-27] MEDS ORDERED: propofoL 200 MG/20 ML VIAL IV ONE (11:22)
[2024-03-27] MEDS ORDERED: GLYCOPYRROLATE 0.2 MG/ML SYR ONE (11:23)
[2024-03-27 13:36] VITALS: BP 157/87; TEMP 98.1; O2SAT 100
== END 2024-03-27 12:39 | disposition home or self-care (01) ==
LOC: OR 10:09
PROVIDERS: ATTEND Surgery
PROC: 0DJD8ZZ Inspection of Lower Intestinal Tract, Via Natural or Artificial Opening Endoscopic (ICD-10-PCS; principal; 2024-03-27 12:00)
DX: Z12.11 Encounter for screening for malignant neoplasm of colon (principal); K64.8 Other hemorrhoids; I10 Essential (primary) hypertension; E78.00 Pure hypercholesterolemia, unspecified; F41.9 Anxiety disorder, unspecified
CPT/HCPCS: 45378; J2704; J2003; J7120

== ENCOUNTER 2024-03-29 07:36 | Day surgery (SDC) | payer BC ==
[2024-03-29] MEDS: Ringers Lactate 1,000 ML IV ONE (08:10)
[2024-03-29] MEDS ORDERED: MIDAZOLAM HCL 2 MG/2 ML INJ ONE (09:08)
[2024-03-29] MEDS ORDERED: FENTANYL CITR 100 MCG/2 ML ONE ×2 (09:08→10:21)
[2024-03-29] MEDS ORDERED: propofoL 200 MG/20 ML VIAL IV ONE (09:08)
[2024-03-29] MEDS ORDERED: ROCURONIUM 50 MG/5 ML VIAL IV ONE (09:09)
[2024-03-29] MEDS ORDERED: LIDOCAINE 2% MPF 5 ML VIAL ONE (09:09)
[2024-03-29] MEDS ORDERED: SUGAMMADEX SODIUM 200 MG/2 ML VIAL IV ONE (09:24)
[2024-03-29] MEDS ORDERED: SUCCINYLCHOLINE 20 MG/ML (10 ML) IV ONE (09:25)
[2024-03-29] MEDS ORDERED: FAMOTIDINE 20 MG/2 ML VIAL IV ONE (09:25)
[2024-03-29] MEDS: CEFAZOLIN SODIUM 2 GM/VIAL ONE (09:41)
[2024-03-29] MEDS: LIDOCAINE HCL/EPINEPHRINE 20 ML MDV ONE (09:42)
[2024-03-29] MEDS ORDERED: ONDANSETRON 4 MG/2 ML VIAL ONE (10:02)
[2024-03-29] MEDS ORDERED: KETOROLAC 30 MG/ML INJ ONE (10:28)
--- NOTE | 2024-03-29 10:34 | P.OP ---
Preoperative diagnosis: Recurrent Ventral Incisional Hernia Postoperative diagnosis: Recurrent Ventral Incisional Hernia Primary procedure: Laparoscopic Ventral Hernia Repair with mesh Anesthesia: GETA + Local Estimated blood loss: <5cc Specimen: none Findings: Incarcerated adipose in periumbilical hernia Complications: None Implants: Bard Ventralite ST 11.4cm Round, Sorbafix x 45 tacks Transferred to: Recovery Room Condition: Good
[2024-03-29] MEDS: HYDROMORPHONE HCL 1 MG/ML INJ ONE (11:02)
[2024-03-29] MEDS: FENTANYL CITR 100 MCG/2 ML ONE (11:09)
[2024-03-29] MEDS: MEPERIDINE HCL 25 MG/ML SYR ONE (11:16)
[2024-03-29] MEDS: PROMETHAZINE INJ 25 MG/ML AMP ONE (11:19)
[2024-03-29] MEDS: CODEINE 30MG/APAP 300MG TAB ONE (11:50)
[2024-03-29 12:52] VITALS: TEMP 97.8; O2SAT 98
[2024-03-29 13:03] VITALS: BP 141/76
--- NOTE | 2024-03-29 14:07 | OP ---
Date of Procedure: 03/29/2024 Surgeon: Lance Cardenas MD, Preoperative Diagnosis: Recurrent ventral incisional hernia. Postoperative Diagnosis: Recurrent ventral incisional hernia. Procedure Performed: Laparoscopic ventral hernia repair with mesh. Anesthesia: General endotracheal plus local with 1% lidocaine with epinephrine. Estimated Blood Loss: 5 cc. Specimen: None. Findings: Incarcerated adipose and periumbilical hernia. Complications: None. Implants: [employer] Ventralight ST with Echo positioning system 11.4 cm round mesh utilizing SorbaFix abs orbable fixation tacks x45. Disposition: The patient transferred to recovery room in good condition. Procedure In Detail: After informed consent was obtained, the patient was brought to the operating r oom, prepped and draped in the usual sterile fashion. After adequate anesthesia was achieved, anesth etized the area in the left upper quadrant down to the subcutaneous tissues. A 5 mm 0-degree optical trocar was introduced into the abdomen without incident or complication. Insufflation was obtained to 15 mmHg. There was no injury to vital structures upon entry into the abdomen. Additional trocar was placed in the left lower quadrant. This was similarly anesthetized and sharply incised, and a 12 mm trocar was placed under direct visualization without incident or complication. I then proceeded using LigaSure device for takedown of periumbilical recurrent adipose containing incisional ventral h ernia using electrocautery, LigaSure, and blunt dissection. I removed all the hernia contents to str ip down the hernia sac which was appreciated at this point. I then brought in an Endo Stitch with 0 V-Loc suture and imbricated the hernia sac closing the defect. At this point, I then deployed 11.[address] c m [employer] [address]ight [address] mesh with Echo positioning system through a separate stab incision in the supra umbilical position down the subcutaneous tissues all the way down. I then deployed the balloon deplo yment system and secured to the anterior abdominal wall with a single crown of absorbable fixation ta cks, removed the balloon deployment system, found it to be intact on the back table and put a total o f 45 absorbable fixation screws to the anterior abdominal wall with good apposition of mesh to the ab dominal wall. No hemostasis required. Mesh with good apposition at this point. I then closed the 1 2 mm trocar site using Sam-Oralia suture passer with 0 Vicryl in interrupted fashion. Good appr oximation of tissues. The abdomen was then desufflated under direct visualization without incident o r complication. Remainder of trocars removed. All skin incisions were then copiously irrigated, benjy sed with a 4-0 Monocryl in running fashion. Dermabond placed over top. The patient tolerated the pr ocedure without incident or complication and transferred to PACU in good condition. All counts were correct at end of case. JOHN/PEREZ Voice ID: [id number] Report ID: [id number]
== END 2024-03-29 12:43 | disposition home or self-care (01) ==
LOC: OR 07:36
PROVIDERS: ATTEND Surgery
PROC: 0WUF4JZ Supplement Abdominal Wall with Synthetic Substitute, Percutaneous Endoscopic Approach (ICD-10-PCS; principal; 2024-03-29 09:45)
DX: K43.2 Incisional hernia without obstruction or gangrene (principal)
CPT/HCPCS: 49613; J2550; J2704; J2003; J2250; J3010 ×3; J2175; J1171; J2405; J7120; C1781